=== PATIENT | female | born 1945 ===

== ENCOUNTER 2018-03-24 07:07 | Day surgery (SDC) | payer MEDICARE, MEDICAID ==
[2018-03-24 07:57] VITALS: BMI 29.0
[2018-03-24] MEDS ORDERED: Lactated Ringer's 500 ML IV ONE ×2 (08:14→09:04)
[2018-03-24] MEDS ORDERED: Propofol 10 mg/ml Inj (20 ML) ONE (08:29)
[2018-03-24 09:22] VITALS: TEMP 98
[2018-03-24 09:37] VITALS: BP 136/65; PULSE 61; RESP 21; O2SAT 98
== END 2018-03-24 10:00 | disposition home or self-care (01) ==
LOC: H.ENDO 07:07
PROVIDERS: ATTEND Internal Medicine Gastroenterology
DX: Z12.11 Encounter for screening for malignant neoplasm of colon (principal); E03.9 Hypothyroidism, unspecified; I10 Essential (primary) hypertension; J45.909 Unspecified asthma, uncomplicated; K57.30 Diverticulosis of large intestine without perforation or abscess without bleeding; K21.0 Gastro-esophageal reflux disease with esophagitis; K31.9 Disease of stomach and duodenum, unspecified
CPT/HCPCS: 43239; 45378; 88305; J2001; J2704; J7120